=== PATIENT | male | born 1970 | race Caucasian/White ===

== ENCOUNTER 2024-12-11 08:59 | Inpatient (IN) | payer OTHER ==
[~2024-12-11] VITALS: Ht 188 cm; Wt 100.0 kg
[2024-12-11] MEDS ORDERED: BUPR1TAB46 SL (09:21)
[2024-12-11] MEDS: ONDANSETRON HCL 4 MG/2 ML VIAL IVP ONE (09:42)
[2024-12-11] MEDS: SODIUM CHLORIDE 0.9% 1,000 ML IV ONE (09:43)
[2024-12-11 10:08] LABS: PLATELET COUNT (AUTO) 230 K/uL (150-450); RED BLOOD CELL COUNT(AUTO) 4.71 MIL/uL (4.50-5.90); RED CELL DISTRIBUTION WIDTH 15.7 % (11.5-14.5); WHITE BLOOD COUNT (AUTO) 9.5 K/uL (4.5-11.0)
[2024-12-11 10:18] LABS: CALCIUM, TOTAL 8.6 mg/dL (8.8-10.5); CREATININE 0.85 mg/dL (0.60-1.30); GLOMERULAR FILTR. RATE CALC > 60 mL/min (>60); GLUCOSE,RANDOM 88 mg/dL (70-110); SODIUM SERUM 138 mmol/L (136-145); UREA NITROGEN, BLOOD 18 mg/dL (7-18)
[2024-12-11 10:23] LABS: ASPARTATE AMINOTRANSFERASE 15 U/L (15-37); TOTAL PROTEIN, SERUM 7.8 g/dL (6.4-8.2)
[2024-12-11 10:30] LABS: ALCOHOL, BLOOD (SERUM) < 3 mg/dL (0-10)
[2024-12-11] MEDS ORDERED: ONDANSETRON HCL 4 MG/2 ML VIAL IVP PRN (11:45)
[2024-12-11] MEDS ORDERED: ACETAMINOPHEN 325 MG TABLET PO PRN (11:45)
[2024-12-11] MEDS: BUPRENORPHINE HCL/NALOXONE HCL 2-0.5 MG SUBLINGUAL TABLET SL ONE (11:57)
[2024-12-11 15:47] VITALS: BP_SYST 116; BP_SYST 119; BP_DIAS 71; BP_DIAS 74; PULSE 58; PULSE 94; RESP 18; RESP 20; TEMP 97.9; O2SAT 96; O2SAT 99
[2024-12-11] MEDS: HEPARIN SODIUM,PORCINE 5,000 UNITS/ML VIAL SQ SCH (16:47)
[2024-12-11 19:53] VITALS: BP 118/67; PULSE 73; RESP 18; TEMP 98.1; O2SAT 98
[2024-12-11] MEDS: DOCUSATE SODIUM 100 MG CAPSULE PO SCH (20:27)
[2024-12-11] MEDS: BUPRENORPHINE HCL/NALOXONE HCL 2-0.5 MG SUBLINGUAL TABLET SL SCH (20:27)
[2024-12-11] MEDS: ZOLPIDEM TARTRATE 5 MG TABLET PO PRN (20:27)
[2024-12-11 23:14] LABS: PH,URINE DRUG SCREEN 5.5 (5.0-8.0)
[2024-12-11 23:21] LABS: ALCOHOL, URINE DRUG SCREEN NEGATIVE (NEGATIVE); AMPHET/METH SCREEN,URINE NEGATIVE (NEGATIVE); BARBITURATE SCREEN, URINE NEGATIVE (NEGATIVE); CANNABINOID SCREEN,URINE POSITIVE (NEGATIVE); COCAINE SCREEN,URINE NEGATIVE (NEGATIVE); METHADONE SCREEN, URINE NEGATIVE (NEGATIVE)
[2024-12-12 05:58] VITALS: BP 151/80; PULSE 70; RESP 19; TEMP 97.9; O2SAT 99
[2024-12-12 07:09] LABS: PLATELET COUNT (AUTO) 212 K/uL (150-450); RED BLOOD CELL COUNT(AUTO) 4.48 MIL/uL (4.50-5.90); RED CELL DISTRIBUTION WIDTH 15.2 % (11.5-14.5); WHITE BLOOD COUNT (AUTO) 9.6 K/uL (4.5-11.0)
[2024-12-12 07:17] LABS: CALCIUM, TOTAL 8.6 mg/dL (8.8-10.5); CREATININE 0.75 mg/dL (0.60-1.30); GLOMERULAR FILTR. RATE CALC > 60 mL/min (>60); GLUCOSE,RANDOM 104 mg/dL (70-110); SODIUM SERUM 134 mmol/L (136-145); UREA NITROGEN, BLOOD 12 mg/dL (7-18)
[2024-12-12 08:26] VITALS: BP 156/79; PULSE 60; RESP 18; TEMP 98.4; O2SAT 97
[2024-12-12 14:11] LABS: INFLUENZA A-RTPCR,COMBO NEGATIVE (NEGATIVE); INFLUENZA B-RTPCR,COMBO NEGATIVE (NEGATIVE); RESPIRATORY SYNCYTIAL VRS-PCR NEGATIVE (NEGATIVE); SARS COVID19 RTPCR, COMBO NEGATIVE (NEGATIVE)
[2024-12-12] MEDS ORDERED: BENZONATATE 100 MG CAPSULE PO PRN (16:00)
[2024-12-12] MEDS ORDERED: ACET-2247 PO (16:10)
== END 2024-12-12 21:34 | DRG 897 ==
LOC: EMS 08:59 → EDH 10:31 → 6S 13:00
PROVIDERS: ADMIT Internal Medicine; ATTEND Internal Medicine
DX: F11.13 Opioid abuse with withdrawal (principal); Z20.822 Contact with and (suspected) exposure to COVID-19
CPT/HCPCS: 71045; 80048; 80076; 80307; 83735; 85025; 87637; 96361; 96374; 99285; G0480; J1644; J2405; 36415-L1; 36415-TC

== ENCOUNTER 2025-02-06 14:27 | Emergency (ER) | payer OTHER ==
[~2025-02-06] VITALS: Ht 188 cm; Wt 104.0 kg
[~2025-02-06 14:27] MED LIST: ACET-2247 PO; BUPR1TAB46 SL
[2025-02-06 14:30] VITALS: BP 153/84; PULSE 65; RESP 18; TEMP 98.2; O2SAT 95
[2025-02-06] MEDS ORDERED: CEPH-558 PO (15:11)
[2025-02-06] MEDS ORDERED: DIPH-901 PO (15:11)
[2025-02-06] MEDS: CEPHALEXIN MONOHYDRATE 500 MG CAPSULE PO ONE (15:26)
[2025-02-06] MEDS ORDERED: BUPR1FIL19 SL (17:31)
[2025-02-06] MEDS ORDERED: NALO4SPR22 NASAL (17:31)
== END 2025-02-06 15:56 | disposition home or self-care (01) ==
LOC: EMS 14:32
DX: L23.9 Allergic contact dermatitis, unspecified cause (principal); L08.9 Local infection of the skin and subcutaneous tissue, unspecified; F11.90 Opioid use, unspecified, uncomplicated; F15.90 Other stimulant use, unspecified, uncomplicated; L70.0 Acne vulgaris; F17.290 Nicotine dependence, other tobacco product, uncomplicated; Z79.899 Other long term (current) drug therapy
CPT/HCPCS: 99284; J8540; Z7502; Z7610

== ENCOUNTER 2025-02-17 12:20 | Emergency (ER) | payer OTHER ==
[~2025-02-17] VITALS: Ht 188 cm; Wt 109.1 kg
[~2025-02-17 12:20] MED LIST changes: +BUPR1FIL19 SL; -BUPR1TAB46 SL; +CEPH-558 PO; +DIPH-901 PO; +NALO4SPR22 NASAL
[2025-02-17 12:33] VITALS: BP 134/69; PULSE 56; RESP 18; TEMP 98.6; O2SAT 98
[2025-02-17] MEDS: LIDOCAINE 1% 10 ML VIAL ID ONE (14:39)
[2025-02-17] MEDS: CETIRIZINE HCL 10 MG TABLET PO ONE (14:56)
[2025-02-17] MEDS ORDERED: CETI10TA77 PO (15:14)
[2025-02-17] MEDS ORDERED: CEPH-558 PO (15:14)
[2025-02-17] MEDS ORDERED: SULF1TAB94 PO (15:14)
[2025-03-07] MEDS ORDERED: DIPH25TA51 PO (16:28)
[2025-03-07] MEDS ORDERED: PRED-554 PO (16:28)
== END 2025-02-17 15:38 | disposition home or self-care (01) ==
LOC: EMS 12:20
DX: L23.9 Allergic contact dermatitis, unspecified cause (principal); L02.413 Cutaneous abscess of right upper limb; F15.90 Other stimulant use, unspecified, uncomplicated; F11.90 Opioid use, unspecified, uncomplicated; F17.290 Nicotine dependence, other tobacco product, uncomplicated; Z79.899 Other long term (current) drug therapy
CPT/HCPCS: 99284; 10160; J3490; 10060